=== PATIENT | male | born 1990 | race Hispanic/Latino ===

== ENCOUNTER 2019-11-12 09:00 | Emergency (ER) | payer OTHER ==
[2019-11-12 10:39] LABS: APPEARANCE, URINE HAZY (CLEAR); BACTERIA, URINE AUTO NEGATIVE (NEGATIVE); BILIRUBIN, URINE AUTO NEGATIVE (NEGATIVE); BLOOD, URINE BLOOD NEGATIVE (NEGATIVE); COLOR, URINE YELLOW (YELLOW); GLUCOSE, URINE (UA) AUTO NEGATIVE (NEGATIVE); GRANULAR CAST, URINE AUTO 11 /LPF; KETONE, URINE AUTO NEGATIVE (NEGATIVE); LEUKOCYTE ESTERASE, URINE AUTO NEGATIVE (NEGATIVE); MUCUS, URINE SMALL (NEGATIVE); NITRITE, URINE AUTO NEGATIVE (NEGATIVE); PROTEIN, URINE AUTO NEGATIVE (NEGATIVE); RBC, URINE AUTO 0 /HPF (0-3); SPECIFIC GRAVITY URINE AUTO 1.017 (1.002-1.035); SQUAMOUS EPITHELIAL CELL UR AU 0 /HPF (0-6); UROBILINOGEN, URINE AUTO 0.2 mg/dL (0.0-2.0); WBC, URINE AUTO 1 /HPF (0-3)
[2019-11-12 10:41] LABS: INR 1.06; PARTIAL THROMBOPLASTIN TIME 23.8 SECONDS (25.0-38.4); PROTHROMBIN TIME 14.1 SECONDS (11.8-14.0)
[2019-11-12 11:38] LABS: BILIRUBIN,TOTAL 0.5 MG/DL (0.2-1.0); CALCIUM LEVEL 9.5 MG/DL (8.5-10.1); CK-MB VALUE MASS 2.9 NG/ML (<3.6); CREATININE FOR GFR 1.5 MG/DL (0.70-1.30); GLOMERULAR FILTRATION RATE 59.3 (>60); MB/CK RELATIVE INDEX 0.76 (< OR =4); POTASSIUM SERUM 3.7 MEQ/L (3.5-5.1); THYROID STIMULATING HORMONE 2.74 uIU/ML (0.358-3.740); TOTAL PROTEIN 7.7 GM/DL (6.4-8.2); TROPONIN I 0.03 NG/ML (< 0.10)
[2019-11-12 11:39] LABS: AMPHETAMINES LEVEL URINE NEGATIVE (NEGATIVE); BARBITURATES URINE NEGATIVE (NEGATIVE); BENZODIAZEPINES URINE NEGATIVE (NEGATIVE); CANNABINOIDS URINE NEGATIVE (NEGATIVE); COCAINE METABOLITE URINE NEGATIVE (NEGATIVE); METHADONE URINE NEGATIVE (NEGATIVE); OPIATES URINE NEGATIVE (NEGATIVE); PHENCYCLIDINE URINE NEGATIVE (NEGATIVE)
[2019-11-12 14:11] LABS: BASO % 0.4 % (0.0-1.0); EOS # 0.2 10^3/uL (0.0-0.5); EOS % 2.4 % (0.0-3.0); HEMATOCRIT 42.9 % (42.0-52.0); HEMOGLOBIN 13.9 g/dl (13.5-17.5); LYMPH % 12.9 % (24.0-44.0); MEAN CORPUSCULAR HEMOGLOBIN 28.8 pg (27.0-33.0); MEAN CORPUSCULAR HGB CONC 32.4 g/dl (32.0-36.5); MEAN CORPUSCULAR VOLUME 88.8 fl (80.0-96.0); MONO # 0.4 10^3/uL (0.0-0.8); MONO % 5.2 % (0.0-5.0); NEUTROPHILS # 5.8 10^3/uL (1.5-8.5); NEUTROPHILS % 78.3 % (36.0-66.0); PLATELET COUNT, AUTOMATED 181 10^3/uL (150-450); RED BLOOD COUNT 4.83 10^6/uL (4.30-6.10); WHITE BLOOD COUNT 7.4 10^3/uL (4.0-10.0)
--- NOTE | 2019-11-18 12:04 | ECGEPIP ---
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
== END 2019-11-12 14:42 | disposition home or self-care (01) ==
LOC: M ED 09:00
DX: R55 Syncope and collapse (principal); N17.9 Acute kidney failure, unspecified; R00.1 Bradycardia, unspecified

== ENCOUNTER → 2020-07-17 | Outpatient (CLI) | payer OTHER | LOC: M LAB 15:52 | PROVIDERS: ATTEND Student in an Organized Health Care Education/Training Program | DX: R53.83 Other fatigue (principal) ==

== ENCOUNTER 2020-08-27 14:40 | Day surgery (SDC) | payer OTHER ==
[~2020-08-27] VITALS: Ht 172.7 cm; Wt 82.1 kg
[2020-08-27] MEDS ORDERED: D31000TA2 PO (15:30)
[2020-08-27] MEDS ORDERED: LIDOCAINE 1% SDV 30ML VIAL As Ordered ONE (15:33)
[2020-08-27] MEDS ORDERED: ceFAZolin SOD 1 GM in D5W MINI-BAG PLUS 50 ML IV ONE (16:40)
[2020-08-27] MEDS ORDERED: fentaNYL 100 MCG/2 ML INJECTION (J3010) As Ordered ONE (18:47)
[2020-08-27] MEDS ORDERED: propofoL 200 MG/20 ML VIAL As Ordered ONE (18:47)
[2020-08-27] MEDS ORDERED: MIDAZOLAM INJ 2MG/2ML VIAL (J2250 PER 1MG) As Ordered ONE (18:47)
[2020-08-27] MEDS ORDERED: ONDANSETRON 4MG/2ML VIAL IV PRN (21:00)
[2020-08-27] MEDS ORDERED: oxyCODONE 5MG TAB PO PRN (21:00)
[2020-08-27] MEDS ORDERED: fentaNYL 100 MCG/2 ML INJECTION (J3010) IV PRN (21:00)
[2020-08-27] MEDS ORDERED: LR 1,000 ML IV SCH (21:00)
[2020-08-27 21:56] VITALS: BP 167/82
--- NOTE | 2020-08-28 10:06 | RO ---
OPERATIVE NOTE DATE OF OPERATION: 08/27/2020 PREOPERATIVE DIAGNOSIS: Unexplained syncope. POSTOPERATIVE DIAGNOSIS: Unexplained syncope. FINDINGS: Unexplained syncope. PROCEDURE PERFORMED: Implantation of a Medtronic subcutaneous cardiac rhythm monitor. SURGEON: Yannick Doe MD. JOB COUNSELOR: None. ANESTHESIA: Lidocaine 1% local anesthetic/monitored anesthetic care. SPECIMENS: None. ESTIMATED BLOOD LOSS: Less than 1 mL. No blood products replaced. DRAINS: None. COMPLICATIONS: None. PROCEDURE DESCRIPTION: Patient was prepped and draped over the left anterior chest and sternum. Lidocaine 1% was used for local anesthetic. An incision was made with a #15 blade approximately 1 cm in length at the left fourth interspace 1 inch lateral to the left parasternal border with a #15 blade. The guide on the insertion tool was then placed into the incision and advanced in the subcutaneous tissue parallel to the anterior chest wall in a 45 degree left lateral/caudal direction. Insertion tool was rotated 180 degrees. The punch was placed into the insertion tool and was used to advance the cardiac rhythm monitor into the subcutaneous tissue. The punch was removed and then the insertion tool was removed using the cardiac rhythm monitor in situ. The initial R wave amplitude measured 1.27 millivolts. The incision was approximated temporarily using a 4-0 Biosyn suture placed subcuticular with the free ends protruding 1 cm from the skin on either end of the incision. Three layers of Dermabond were applied. The Biosyn suture was then pulled through the incision and removed entirely. Patient tolerated the procedure well without any immediate complications. The cardiac rhythm monitor implanted was Medtronic LINQ II model LNQ22 with serial number [id number].
== END 2020-08-27 22:02 | disposition home or self-care (01) ==
LOC: M SDC 14:40
PROVIDERS: ATTEND Internal Medicine Cardiovascular Disease
DX: R55 Syncope and collapse (principal)
CPT/HCPCS: 33285; C1764; J0690; J2250; J3010; U0002

== ENCOUNTER → 2020-09-17 | Outpatient (CLI) | payer OTHER ==
[~2020-09-17] MED LIST: D31000TA2 PO
--- NOTE | 2020-09-17 10:35 | REP ---
INDICATION: DYSPNEA COMPARISON: None TECHNIQUE: Axial noncontrast images from the thoracic inlet to the upper abdomen with coronal and sagittal reformations. This CT examination was performed using the following dose reduction techniques: Automated exposure control, adjustment of mA and/or kv according to the patient's size, and use of iterative reconstruction technique. FINDINGS: Bilateral lung martins are well aerated. Very small focal area of airspace disease identified along the medial right middle lobe (series 3 images 71-75) which may reflect a resolving infiltrate and should be correlated clinically. No further significant consolidation. No effusion or pneumothorax. Tracheobronchial tree is patent. Mediastinum is normal. No adenopathy. Surrounding musculoskeletal structures are intact. Limited upper abdomen demonstrates normal bilateral adrenal glands and evidence for cholelithiasis. IMPRESSION: Extremely subtle airspace disease in the medial right lower lobe should be correlated clinically. Findings may reflect a small resolving focus of pneumonia/atelectasis. Cholelithiasis. <Electronically signed by Malcolm Irwin > 09/17/20 [id number]
== END ==
LOC: M PLAIMG 09:33
PROVIDERS: ATTEND Nurse Practitioner Family
DX: R06.00 Dyspnea, unspecified (principal); K80.20 Calculus of gallbladder without cholecystitis without obstruction

== ENCOUNTER → 2020-09-25 | Outpatient (CLI) | payer OTHER ==
[~2020-09-25] MED LIST changes: +METHACHOLINE KIT (J7674) INH ONE
--- NOTE | 2020-09-25 08:54 | PFTRPT ---
Site: [facility], [address] [place], [address] ID: [id number] Name: TAL DELANEY Visit Date: 09/25/2020 Second ID: [id number] Referring Doctor: CHANTAL BERNAL Reviewing Doctor: Guy Roca MD Watch Hairspring Assembler: Tod SÁNCHEZ RRT Age: 30 : 1990 Sex: Male Race: Height: 68.00 Inches Weight: 177.00 Lbs BSA: 1.94 Order IDs: [id number] Requested Test(s): <RESP-PFT.METH CHAL> Diagnosis: R05 of albuterol for post bronchodilator. Review Status: Not Reviewed Pre-Bronch Post-Bronch Pred Actual %Pred Actual %Chng SPIROMETRY FVC (L) 5.14 5.82 113 5.82 FEV1 (L) 4.28 4.99 116 4.84 -3 FEV1/FVC (%) 84 86 102 83 -3 FEF 25% (L/sec) 8.06 10.10 125 10.14 FEF 50% (L/sec) 5.62 8.09 143 5.96 -26 FEF 75% (L/sec) 2.10 2.66 126 2.30 -13 FEF 25-75% (L/sec) 4.60 5.82 126 5.05 -13 FEF Max (L/sec) 10.01 11.05 110 10.70 -3 FIVC (L) 5.65 5.48 -3 FIF 50% (L/sec) 5.52 10.65 192 7.32 -31 FIF Max (L/sec) 10.91 7.40 -32 Expiratory Time (sec) 6.74 6.90 2 Back Extrap Vol (L) 0.13 0.16 26 Time To FEFmax (sec) 0.062 0.069 11
== END ==
LOC: M CARPUL 07:45
PROVIDERS: ATTEND Nurse Practitioner Family
DX: R05 Cough (principal)
CPT/HCPCS: 94070; J7674

== ENCOUNTER → 2020-12-31 | Outpatient (CLI) | payer OTHER ==
[~2020-12-31] MED LIST changes: -METHACHOLINE KIT (J7674) INH ONE
--- NOTE | 2020-12-31 17:18 | REP ---
INDICATION: DYSPNEA COMPARISON: 09/17/2020 the only prior also without contrast TECHNIQUE: Standard helical technique without contrast FINDINGS: The mediastinum and pulmonary rajendra are stable. There is no mass or adenopathy. The imaged upper abdomen and imaged osseous structures are unchanged and again seen to be within normal limits. Evaluation of the lung martins shows complete resolution of the small ground-glass opacity seen in the right lower lobe. No new abnormal nodules, masses, or opacities have developed. IMPRESSION: CT findings are within normal limits. Cholelithiasis seen on the prior examination has not been imaged on today's examination. <Electronically signed by Parth Martínez > 12/31/20 [id number]
== END ==
LOC: M PLAIMG 14:06
PROVIDERS: ATTEND Nurse Practitioner Family
DX: R06.00 Dyspnea, unspecified (principal)

== ENCOUNTER 2021-07-04 12:31 | Emergency (ER) | payer OTHER ==
[~2021-07-04] VITALS: Ht 172.7 cm; Wt 76.8 kg
[~2021-07-04 12:31] MED LIST changes: -D31000TA2 PO; +VITA100093 PO
[2021-07-04] MEDS ORDERED: WELLTAB40 (13:11)
[2021-07-04 14:52] VITALS: BP 151/76
== END 2021-07-04 14:54 | disposition home or self-care (01) ==
LOC: EDBD 12:31 → M ED 12:31
DX: R55 Syncope and collapse (principal); R94.31 Abnormal electrocardiogram [ECG] [EKG]; F32.A Depression, unspecified; F10.10 Alcohol abuse, uncomplicated

== ENCOUNTER → 2021-08-20 | Outpatient (CLI) | payer OTHER ==
[~2021-08-20] MED LIST changes: +WELLTAB40
== END ==
LOC: M RAD 12:53
PROVIDERS: ATTEND Physician Assistant
DX: R55 Syncope and collapse (principal)

== ENCOUNTER → 2021-12-09 | Outpatient (CLI) | payer OTHER ==
[~2021-12-09] MED LIST changes: +ISOVUE-370 76% 100ML VIAL As Ordered ONE
== END ==
LOC: M RAD 13:36
PROVIDERS: ATTEND Surgery Vascular Surgery
DX: I65.23 Occlusion and stenosis of bilateral carotid arteries (principal)
CPT/HCPCS: 70496; 70498; Q9967